=== PATIENT | female | born 1985 | race Caucasian/White ===

== ENCOUNTER 2020-04-22 06:47 | Emergency (ER) | payer SELFPAY ==
[2020-04-22] MEDS ORDERED: Ibuprofen 800 MG TAB ONE (08:18)
[2020-04-22] MEDS ORDERED: Acetaminophen 500 MG TAB ONE (08:18)
--- NOTE | 2020-04-22 08:19 | RAD ---
EXAM: XR Lumbar Spine 2 Or 3 View PROVIDED CLINICAL HISTORY: Low back pain after bending over and feeling a popping sensation. COMPARISON: None FINDINGS: There are 5 nonrib-bearing lumbar-type vertebral bodies. There is mild loss of the L5-S1 intervertebr al disc space height. Remainder of the intervertebral disc spaces as well as vertebral body heights are within normal limits. Osteophytes are seen anteriorly at the T11-12 level. No fracture or subluxa tion is seen involving the lumbar spine. There multiple surgical clips overlying the right upper quadrant. IMPRESSION: 1. No acute osseous abnormality involving the lumbar spine. If there is a neurological deficit or per sistent pain, MRI lumbar spine may be helpful for further evaluation.
== END 2020-04-22 08:51 | disposition home or self-care (01) ==
LOC: ERS 06:47
DX: M54.42 Lumbago with sciatica, left side (principal); F17.210 Nicotine dependence, cigarettes, uncomplicated
CPT/HCPCS: 72100